=== PATIENT | female | born 1950 | race Caucasian/White ===

== ENCOUNTER 2025-03-07 07:32 | Outpatient (CLI) | payer MEDICARE, SELFPAY | END 2025-03-07 07:33 | disposition home or self-care (01) | LOC: LAB 03-09 09:09 | PROVIDERS: Visit Provider Psychiatry & Neurology Neurology | DX: R51.9 Headache, unspecified (principal); E53.8 Deficiency of other specified B group vitamins; E55.9 Vitamin D deficiency, unspecified; G43.909 Migraine, unspecified, not intractable, without status migrainosus | CPT/HCPCS: 36415; 80053; 82306; 82607; 82746; 83735; 83921; 84439; 84443; 85025 ==

== ENCOUNTER 2025-03-14 10:32 | Outpatient (CLI) | payer MEDICARE, SELFPAY ==
--- NOTE | 2025-03-14 11:00 | MR_ITS ---
WS: [id number] MRI BRAIN WITHOUT CONTRAST HISTORY: G43.019 - Migraine without aura, intractable, history of prior posterior fossa and frontal sinus surgery. COMPARISON: None available. TECHNIQUE: Diffusion imaging, multiplanar T1, T2 and FLAIR imaging obtained. No evidence for acute infarct or hemorrhage. Grimm-white matter differentiation is normal. Mild atrophy. Moderate scattered T2 and FLAIR signal hyperintensities surrounding the ventricles and in the subcortical white matter predominantly of the frontal and parietal lobes. No signal abnormality in the posterior fossa. Mildly prominent ventricles and extra-axial spaces on the basis of atrophy. Focal cerebellar atrophy on the LEFT may be the site of prior surgery. Slight volume loss. There is no associated edema or midline shift. No mass. Dural venous sinuses and [place] demonstrate no abnormality on this unenhanced studies. Paranasal sinuses: Clear. Mastoid air cells: Normal. Calvarium and scalp: Intact. MR/MR head wo con* [id number] IMPRESSION: 1. Normal diffusion imaging. No hemorrhage. 2. Mild cerebral atrophy and cerebellar atrophy. 3. Moderate small vessel changes. Predominantly involving the frontal and michael etal lobes. No prior infarct.
--- NOTE | 2025-03-14 11:30 | MR_ITS ---
WS: [id number] MRA ANGIOGRAPHY [place] HISTORY: I34.1 - Nonrheumatic mitral (valve) prolapse COMPARISON: None available. TECHNIQUE: 3-D MR angiography is performed of the [place]. All images are reviewed including source images. Distal vertebral and basilar arteries are intact with no significant stenosis or plaque. Posterior cerebral arteries are normal course and caliber. Posterior communicating arteries are both patent. Intracranial portion of the internal carotid arteries are normal course and caliber. No significant atherosclerosis, stenosis or aneurysm identified. Middle and anterior cerebral arteries are both patent with no significant disease. Anterior communicating artery is also normal. MR/MR angio head wo con [id number] IMPRESSION: Normal MRA [place].
--- NOTE | 2025-03-14 12:15 | USCV_ITS ---
Juan Tong Age: 74 Gender: F : 1950 Exam Date: 03/14/2025 12:13 Ordering Phys: Clay Pabon MD Technologist: LAURITA Exam Location: [facility] [place]: migraines Risk Factors: Previous Vascular Surgery: Right Brachial BP: / Left Brachial BP: / Right Left Velocity (cm/s) Spectral Plaque Velocity (cm/s) Spectral Plaque Syst/Diast Broadening Syst/Diast Broadening 51.60/ 12.80 Prox CCA 60.80 / 16.90 49.80/ 14.90 Mid CCA 55.30 / 14.00 50.80/ 15.70 Distal CCA 47.80 / 17.80 32.30/ 10.80 Prox ICA 28.60 / 8.10 28.80/ 10.10 Mid ICA 40.40 / 15.10 53.10/ 17.70 Distal ICA 27.10 / 7.80 35.40 ECA 30.30 1.00 ICA/CCA 0.80 Antegrade Vertebral Antegrade 25.00/ 7.00 cm/s 21.00/ 6.90 cm/s Tri Subclavian Tri 65.60 66.50 CONCLUSIONS Right ICA stenosis <50%. Mild atheromatous plaque right carotid bulb/ICA. Left ICA stenosis <50%. Moderate atheromatous plaque left carotid bulb/ICA. Intimal thickening in the common carotid arteries and internal carotid arteries bilaterally. Normal antegrade Doppler flow noted in the right vertebral artery. Normal antegrade Doppler flow noted in the left vertebral artery. Julius Dorsey MD (Electronically Signed) Final Date: 14 March 2025 16:54 S
== END 2025-03-14 10:33 | disposition home or self-care (01) ==
LOC: RAD 10:33
PROVIDERS: Visit Provider Psychiatry & Neurology Neurology
DX: G43.019 Migraine without aura, intractable, without status migrainosus (principal); R29.818 Other symptoms and signs involving the nervous system; I34.1 Nonrheumatic mitral (valve) prolapse; I65.23 Occlusion and stenosis of bilateral carotid arteries; I67.89 Other cerebrovascular disease
CPT/HCPCS: 70544; 70551; 93880

== ENCOUNTER → 2025-04-24 11:01 | Outpatient (BNVA) | payer MEDICARE, SELFPAY | PROVIDERS: Referring Provider Psychiatry & Neurology Neurology; Visit Provider Internal Medicine Cardiovascular Disease | DX: I65.23 Occlusion and stenosis of bilateral carotid arteries (principal); I10 Essential (primary) hypertension; E78.5 Hyperlipidemia, unspecified; I34.1 Nonrheumatic mitral (valve) prolapse; R00.1 Bradycardia, unspecified; R07.9 Chest pain, unspecified | CPT/HCPCS: 93005; 99204 ==